=== PATIENT | male | born 1940 | race Caucasian/White ===

== ENCOUNTER 2018-04-03 14:51 | Inpatient (IN) | payer OTHER ==
[2018-04-03 17:22] VITALS: BMI 24.7
--- NOTE | 2018-04-03 17:40 | History and Physical Report ---
History of Present Illnes - History of Present Illness Reason for Visit: gait disturbance following CVA History of Present Illness: Patient is a 78-year-old white male who has a history of Parkinson's disease, hypertension, orthostatic hypotension, dry eye syndrome, and GERDs. Approximately three days ago patient developed a severe headache and was noted to have some left facial drooping. Patient was subsequently seen at the [facility] in clinic. Patient was found to have a right basiler ganglia subacute infarct. No specific intervention was done. Patient was subsequently transferred to this institution for further rehab services. Prior to his stroke patient was living at home with his . Patient does need some assistance in his daily living cares because of his Parkinson's disease. - Past Medical History Cardiac: AFIB (converted), HTN, Other (orthostatic hypotension) [employer]IAN: Seizure, Other (Parkinson's Disease) Gastrointestinal: Constipation (last BM 4 days ago) Psych: Other (Sun downers) - Past Surgical History Past Surgical History: Appendectomy, Cataract Removal (bilat), Other (Left knee endon repair, carpal tunnel release, bk surgery for spinal stenosis) - Past Family History Mother Family History: CAD, (72yo), Other (Santo's son) Father Family History: CAD, (65yo) Sister 1 Family History: Cancer (breast), Sister 2 Family History: CVA, (83yo), Other (Parkinson's ) - Past Social History Smoke: No Occupation: [employer], local truck driver Alcohol: None Drugs: None Lives: With Family Domestic Violence: Negative - Health Maintenance Health Maintenance: denies: Influenza Vaccine Influenza Vaccine: No Pneumonia Vaccine: No Resuscitation Status: Resusciation Status Resuscitation Status Full Code - Unable to Obtain History Unable to Obtain: Yes ( ) Review of Systems - Review of Systems Constitutional: negative: Fever, Chills Eyes: negative: pain, vision change, conjunctivae inflammation, eyelid inflammation, redness ENT: negative: Ear Pain, Ear Discharge, Nose Discharge, Nose Congestion, Mouth Pain, Mouth Swelling, Throat Pain, Throat Swelling Respiratory: negative: Cough, Dry, Shortness of Breath, Hemoptysis, SOB with Excertion, Pleuritic Pain, Sputum, Wheezing Cardiovascular: Light Headedness. negative: Chest Pain, Palpitations, Orthopnea, Paroxysmal Noc. Dyspnea, Edema Gastrointestinal: negative: Nausea, Vomiting, Abdominal Pain, Diarrhea, Constipation, Melena, Hematochezia Genitourinary: negative: Dysuria, Frequency, Incontinence, Hematuria, Retention Musculoskeletal: negative: Neck Pain, Back Pain Skin: negative: Rash, Lesions, Jaundice Neurological: Weakness, Change in Speech, Confusion. negative: Numbness, Seizures, Deferred - Medications/Allergies Allergies/Adverse Reactions: Allergies Allergy/AdvReac Type Severity Reaction Status Date / Time tramadol AdvReac Hallucinati Verified 04/03/18 18:45 ons Home Medications: Home Medications Aspirin EC [Ecotrin] 81 mg PO DAILY 04/03/18 Carbidopa/Levodopa [Carbidopa-Levo 25-100 mg Odt] 2 tab PO TID 04/03/18 Carbidopa/Levodopa [Carbidopa-Levodopa 10-100 Tab] 1 tab PO TID 04/03/18 Carboxymethylcellulose Sodium [Lubricant Plus] 1 each OP QID 04/03/18 Cholecalciferol [Vitamin D-3] 1 tab PO DAILY 04/03/18 Diclofenac Sodium [Pennsaid] 2 gm TP DAILY PRN 04/03/18 Diltiazem HCl [Diltiazem 24Hr Cd] 240 mg PO D 04/03/18 Entacapone 200 mg PO TID 04/03/18 Fludrocortisone Acetate 0.05 mg PO DAILY 04/03/18 Hypromellose/Pf [Retaine Hpmc 0.3% Eye Drops] 10 ml OP HS 04/03/18 Levetiracetam 500 mg PO BID 04/03/18 Lisinopril [Prinivil] 2.5 mg PO 2000 04/03/18 Midodrine HCl 2.5 mg PO 0700,1200 04/03/18 Omeprazole 20 mg PO 0700 04/03/18 Polyethylene Glycol 3350 [Miralax] 17 gm PO 1100 04/03/18 Potassium Chloride 10 meq PO DAILY 04/03/18 Exam - Exam Vital Signs: Vital Signs (72 hours) 04/03/18 15:42 Temperature 97.2 F L Pulse Rate [ 67 Left] Respiratory 16 Rate Blood Pressure 113/52 [Left Arm] O2 Sat by Pulse 98 Oximetry General: Alert, Oriented to Person, Oriented to Place, Oriented to Time, Cooperative HEENT: Atraumatic, PERRLA, EOMI, Mouth Mucous membr. moist/[place], Nose Mucous membr. moist/[place] Neck: Normal Range of Motion Lungs: Clear to auscultation, Normal air movement, Speaks full Sentences Cardiovascular: Regular rate, Normal S1, Normal S2, No murmurs Abdomen: Normal bowel sounds, Soft, No tenderness, No hepatospenomegaly, No masses Integumentary: Normal, [place], Warm, Dry Extremities: No clubbing, No cyanosis, No edema, Normal pulses, No tenderness/swelling Neurological: Normal gait, Normal speech, Strength Equal Bilat, Normal tone, Sensation intact, Cranial nerves 3-12 NL, Reflexes 2+, Other (resting tremors) Psych/Mental Status: Mental status NL, Mood NL, Appropriate Affect, Intact Judgment Assessment/Plan - Assessment/Plan (1) Basal ganglia stroke Status: Acute Current Visit: Yes Assessment: Patient does have some weakness. Will start physical and occupational therapy. Patient is currently on aspirin therapy. (2) Essential hypertension Status: Acute Current Visit: Yes Assessment: Will continue with home medications. (3) Orthostatic hypotension Status: Acute Current Visit: Yes Assessment: Patient will have support stockings place. Will continue with home medications. (4) Chronic GERD Status: Acute Current Visit: Yes Assessment: Will continue with the proton pump inhibitor. (5) Parkinson disease Status: Acute Current Visit: Yes Assessment: Will continue his home medications. VTE Assessment - RISK FACTOR SCORE VTE RISK FACTOR SCORES: AGE OVER 60 YEARS, ANTICIPATED BED CONFINEMENT OR IMMOBILIZATION > 24 HOURS - RISK VTE MODERATE RISK: SCORE OF 2 (RISK PROXIMAL DVT 2-4%) PROPHYAXIS NEEDED
[2018-04-03] MEDS: ENOXAPARIN SODIUM 30 MG/0.3 ML DISP.SYRIN SQ SCH (18:29)
[2018-04-03] MEDS ORDERED: INFLUENZA VACCINE/PF 60 MCG/0.5 ML DISP.SYRIN IM SCH (19:00)
[2018-04-03] MEDS: MELATONIN 3 MG TABLET PO SCH (20:44)
[2018-04-03] MEDS: LISINOPRIL 2.5 MG TABLET PO SCH (20:44)
[2018-04-03] MEDS: levETIRAcetam 500 MG TABLET PO SCH (20:44)
[2018-04-04] MEDS: PANTOPRAZOLE SODIUM 40 MG TABLET PO SCH (06:06)
[2018-04-04] MEDS: MIDODRINE HCL 5 MG TABLET PO SCH ×2 (06:06→11:35)
[2018-04-04] MEDS ORDERED: CHOLECALCIFEROL (VIT D3) 1,000 UNIT TABLET PO SCH (09:00)
[2018-04-04] MEDS: POTASSIUM CHLORIDE 10 MEQ TABLET.ER PO SCH (09:06)
[2018-04-04] MEDS: ASPIRIN EC 81 MG TABLET.DR PO SCH (09:06)
[2018-04-04] MEDS: levETIRAcetam 500 MG TABLET PO SCH ×2 (09:07→20:16)
[2018-04-04] MEDS: DILTIAZEM HCL 120 MG CAP.ER.24H PO SCH (09:07)
[2018-04-04] MEDS: Non-Formulary 1 EACH PO SCH ×5 (09:07→18:46)
[2018-04-04] MEDS: FLUDROCORTISONE ACETATE 0.1 MG TABLET PO SCH (09:19)
[2018-04-04] MEDS: ACETAMINOPHEN 325 MG TABLET PO PRN (10:53)
[2018-04-04] MEDS: POLYETHYLENE GLYCOL 3350 17 GM POWD.PACK PO SCH (11:26)
[2018-04-04] MEDS: ENOXAPARIN SODIUM 30 MG/0.3 ML DISP.SYRIN SQ SCH (18:46)
[2018-04-04] MEDS: LISINOPRIL 2.5 MG TABLET PO SCH (20:17)
[2018-04-04] MEDS: MELATONIN 3 MG TABLET PO SCH (20:17)
[2018-04-05] MEDS: MIDODRINE HCL 5 MG TABLET PO SCH ×2 (06:02→11:10)
[2018-04-05] MEDS: PANTOPRAZOLE SODIUM 40 MG TABLET PO SCH (06:03)
[2018-04-05] MEDS: DILTIAZEM HCL 120 MG CAP.ER.24H PO SCH (08:54)
[2018-04-05] MEDS: ASPIRIN EC 81 MG TABLET.DR PO SCH (08:54)
[2018-04-05] MEDS: FLUDROCORTISONE ACETATE 0.1 MG TABLET PO SCH (08:55)
[2018-04-05] MEDS: POTASSIUM CHLORIDE 10 MEQ TABLET.ER PO SCH (08:56)
[2018-04-05] MEDS: Non-Formulary 1 EACH PO SCH ×6 (08:56→17:41)
[2018-04-05] MEDS: CHOLECALCIFEROL (VIT D3) 1,000 UNIT TABLET PO SCH (08:58)
[2018-04-05] MEDS: levETIRAcetam 500 MG TABLET PO SCH ×2 (09:00→20:03)
[2018-04-05] MEDS: POLYETHYLENE GLYCOL 3350 17 GM POWD.PACK PO SCH (11:08)
[2018-04-05] MEDS: ENOXAPARIN SODIUM 30 MG/0.3 ML DISP.SYRIN SQ SCH (17:40)
[2018-04-05] MEDS: MELATONIN 3 MG TABLET PO SCH (20:03)
[2018-04-05] MEDS: LISINOPRIL 2.5 MG TABLET PO SCH (20:03)
[2018-04-06] MEDS: PANTOPRAZOLE SODIUM 40 MG TABLET PO SCH (06:04)
[2018-04-06] MEDS: MIDODRINE HCL 5 MG TABLET PO SCH ×2 (06:04→12:47)
[2018-04-06] MEDS: ASPIRIN EC 81 MG TABLET.DR PO SCH (08:44)
[2018-04-06] MEDS: CHOLECALCIFEROL (VIT D3) 1,000 UNIT TABLET PO SCH (08:45)
[2018-04-06] MEDS: DILTIAZEM HCL 120 MG CAP.ER.24H PO SCH (08:45)
[2018-04-06] MEDS: FLUDROCORTISONE ACETATE 0.1 MG TABLET PO SCH (08:45)
[2018-04-06] MEDS: levETIRAcetam 500 MG TABLET PO SCH ×2 (08:45→20:02)
[2018-04-06] MEDS: Non-Formulary 1 EACH PO SCH ×6 (08:45→17:22)
[2018-04-06] MEDS: POTASSIUM CHLORIDE 10 MEQ TABLET.ER PO SCH (08:46)
[2018-04-06] MEDS ORDERED: BISACODYL 5 MG TABLET.DR PO SCH (09:00)
[2018-04-06] MEDS: POLYETHYLENE GLYCOL 3350 17 GM POWD.PACK PO SCH (11:34)
[2018-04-06] MEDS: ENOXAPARIN SODIUM 30 MG/0.3 ML DISP.SYRIN SQ SCH (18:16)
[2018-04-06] MEDS: ACETAMINOPHEN 325 MG TABLET PO PRN (18:30)
[2018-04-06] MEDS: LISINOPRIL 2.5 MG TABLET PO SCH (20:01)
[2018-04-06] MEDS: MELATONIN 3 MG TABLET PO SCH (20:02)
[2018-04-07] MEDS: MIDODRINE HCL 5 MG TABLET PO SCH ×2 (06:16→12:54)
[2018-04-07] MEDS: PANTOPRAZOLE SODIUM 40 MG TABLET PO SCH (06:16)
[2018-04-07 06:35] LABS: eGFR (Non-African) > 60
[2018-04-07] MEDS: levETIRAcetam 500 MG TABLET PO SCH ×2 (08:51→20:04)
[2018-04-07] MEDS: ASPIRIN EC 81 MG TABLET.DR PO SCH (08:52)
[2018-04-07] MEDS: DILTIAZEM HCL 120 MG CAP.ER.24H PO SCH (08:52)
[2018-04-07] MEDS: FLUDROCORTISONE ACETATE 0.1 MG TABLET PO SCH (08:53)
[2018-04-07] MEDS: POTASSIUM CHLORIDE 10 MEQ TABLET.ER PO SCH (08:53)
[2018-04-07] MEDS: CHOLECALCIFEROL (VIT D3) 1,000 UNIT TABLET PO SCH (08:54)
[2018-04-07] MEDS: Non-Formulary 1 EACH PO SCH ×6 (08:54→18:06)
[2018-04-07 09:02] LABS: EOS % 5.2 % (0.0-6.8); LYMPH ABS # 2.15 thou/uL (0.60-4.00); MCH. 30.9 pg (28.0-34.0); MCV 92.1 fL (80.0-100.0); MONOCYTE % 8.8 % (0.0-11.0); MONOCYTE ABS # 0.44 thou/uL (0.00-0.90); PLATELET COUNT 252 thou/uL (130-400)
[2018-04-07] MEDS: POLYETHYLENE GLYCOL 3350 17 GM POWD.PACK PO SCH (11:05)
[2018-04-07] MEDS: ACETAMINOPHEN 325 MG TABLET PO PRN (15:14)
[2018-04-07] MEDS: ENOXAPARIN SODIUM 30 MG/0.3 ML DISP.SYRIN SQ SCH (18:06)
[2018-04-07] MEDS: LISINOPRIL 2.5 MG TABLET PO SCH (19:48)
[2018-04-07] MEDS: MELATONIN 3 MG TABLET PO SCH (20:04)
[2018-04-08] MEDS: PANTOPRAZOLE SODIUM 40 MG TABLET PO SCH (06:03)
[2018-04-08] MEDS: MIDODRINE HCL 5 MG TABLET PO SCH ×2 (06:03→12:41)
[2018-04-08] MEDS: CHOLECALCIFEROL (VIT D3) 1,000 UNIT TABLET PO SCH (08:56)
[2018-04-08] MEDS: POTASSIUM CHLORIDE 10 MEQ TABLET.ER PO SCH (08:57)
[2018-04-08] MEDS: ASPIRIN EC 81 MG TABLET.DR PO SCH (08:57)
[2018-04-08] MEDS: levETIRAcetam 500 MG TABLET PO SCH ×2 (08:57→20:21)
[2018-04-08] MEDS: FLUDROCORTISONE ACETATE 0.1 MG TABLET PO SCH (08:57)
[2018-04-08] MEDS: Non-Formulary 1 EACH PO SCH ×7 (08:58→17:57)
[2018-04-08] MEDS: POLYETHYLENE GLYCOL 3350 17 GM POWD.PACK PO SCH (11:10)
[2018-04-08] MEDS: ENOXAPARIN SODIUM 30 MG/0.3 ML DISP.SYRIN SQ SCH (17:57)
[2018-04-08] MEDS: LISINOPRIL 2.5 MG TABLET PO SCH (20:15)
[2018-04-08] MEDS: MELATONIN 3 MG TABLET PO SCH (20:17)
[2018-04-08] MEDS: Non-Formulary 1 EACH PO PRN (20:18)
[2018-04-08] MEDS: ACETAMINOPHEN 325 MG TABLET PO PRN (20:20)
[2018-04-08] MEDS ORDERED: MELATONIN 3 MG TABLET PO PRN (20:29)
[2018-04-08] MEDS ORDERED: MELATONIN 3 MG TABLET PO ONE (20:35)
[2018-04-09] MEDS: PANTOPRAZOLE SODIUM 40 MG TABLET PO SCH (06:05)
[2018-04-09] MEDS: MIDODRINE HCL 5 MG TABLET PO SCH ×2 (06:05→11:49)
[2018-04-09] MEDS: POTASSIUM CHLORIDE 10 MEQ TABLET.ER PO SCH (09:18)
[2018-04-09] MEDS: levETIRAcetam 500 MG TABLET PO SCH ×2 (09:18→20:07)
[2018-04-09] MEDS: ASPIRIN EC 81 MG TABLET.DR PO SCH (09:18)
[2018-04-09] MEDS: FLUDROCORTISONE ACETATE 0.1 MG TABLET PO SCH (09:18)
[2018-04-09] MEDS: ACETAMINOPHEN 325 MG TABLET PO PRN (09:18)
[2018-04-09] MEDS: Non-Formulary 1 EACH PO SCH ×7 (09:18→18:14)
[2018-04-09] MEDS: CHOLECALCIFEROL (VIT D3) 1,000 UNIT TABLET PO SCH (09:20)
[2018-04-09] MEDS: POLYETHYLENE GLYCOL 3350 17 GM POWD.PACK PO SCH (11:49)
[2018-04-09] MEDS: ENOXAPARIN SODIUM 30 MG/0.3 ML DISP.SYRIN SQ SCH (18:12)
[2018-04-09] MEDS ORDERED: MAGNESIUM CITRATE 296 ML BOTTLE PO ONE (20:00)
[2018-04-09] MEDS: LISINOPRIL 2.5 MG TABLET PO SCH (20:06)
[2018-04-09] MEDS: MELATONIN 3 MG TABLET PO SCH (20:07)
[2018-04-10] MEDS: MIDODRINE HCL 5 MG TABLET PO SCH ×2 (06:03→12:49)
[2018-04-10] MEDS: PANTOPRAZOLE SODIUM 40 MG TABLET PO SCH (06:03)
[2018-04-10] MEDS: POTASSIUM CHLORIDE 10 MEQ TABLET.ER PO SCH (08:41)
[2018-04-10] MEDS: levETIRAcetam 500 MG TABLET PO SCH ×2 (08:41→19:53)
[2018-04-10] MEDS: ASPIRIN EC 81 MG TABLET.DR PO SCH (08:41)
[2018-04-10] MEDS: FLUDROCORTISONE ACETATE 0.1 MG TABLET PO SCH (08:42)
[2018-04-10] MEDS: Non-Formulary 1 EACH PO SCH ×7 (08:42→18:01)
[2018-04-10] MEDS: CHOLECALCIFEROL (VIT D3) 1,000 UNIT TABLET PO SCH (08:45)
[2018-04-10] MEDS: POLYETHYLENE GLYCOL 3350 17 GM POWD.PACK PO SCH (11:40)
[2018-04-10] MEDS: ENOXAPARIN SODIUM 30 MG/0.3 ML DISP.SYRIN SQ SCH (18:00)
[2018-04-10] MEDS: LISINOPRIL 2.5 MG TABLET PO SCH (19:53)
[2018-04-10] MEDS: MELATONIN 3 MG TABLET PO SCH (19:54)
[2018-04-11] MEDS: PANTOPRAZOLE SODIUM 40 MG TABLET PO SCH (06:07)
[2018-04-11] MEDS: MIDODRINE HCL 5 MG TABLET PO SCH ×2 (06:07→13:16)
[2018-04-11] MEDS: Non-Formulary 1 EACH PO SCH ×7 (08:53→17:51)
[2018-04-11] MEDS: POTASSIUM CHLORIDE 10 MEQ TABLET.ER PO SCH (08:53)
[2018-04-11] MEDS: levETIRAcetam 500 MG TABLET PO SCH ×2 (08:54→21:28)
[2018-04-11] MEDS: ASPIRIN EC 81 MG TABLET.DR PO SCH (08:54)
[2018-04-11] MEDS: ACETAMINOPHEN 325 MG TABLET PO PRN (08:56)
[2018-04-11] MEDS: FLUDROCORTISONE ACETATE 0.1 MG TABLET PO SCH (08:57)
[2018-04-11] MEDS: CHOLECALCIFEROL (VIT D3) 1,000 UNIT TABLET PO SCH (08:58)
[2018-04-11] MEDS: POLYETHYLENE GLYCOL 3350 17 GM POWD.PACK PO SCH (13:18)
[2018-04-11] MEDS: ENOXAPARIN SODIUM 30 MG/0.3 ML DISP.SYRIN SQ SCH (17:51)
[2018-04-11] MEDS ORDERED: BISACODYL 5 MG TABLET.DR PO PRN (19:27)
[2018-04-11] MEDS: MELATONIN 3 MG TABLET PO SCH (21:28)
[2018-04-11] MEDS: DOCUSATE SODIUM 100 MG CAPSULE PO SCH (21:29)
[2018-04-11] MEDS: LISINOPRIL 2.5 MG TABLET PO SCH (21:29)
[2018-04-12] MEDS: PANTOPRAZOLE SODIUM 40 MG TABLET PO SCH (06:22)
[2018-04-12] MEDS: MIDODRINE HCL 5 MG TABLET PO SCH ×2 (06:22→11:45)
--- NOTE | 2018-04-12 07:52 | Discharge Summary ---
Discharge Summary - Discharge Sumary History of Present Illness: Patient is a 78-year-old white male who has a history of Parkinson's disease, hypertension, orthostatic hypotension, dry eye syndrome, and GERDs. Approximately three days ago patient developed a severe headache and was noted to have some left facial drooping. Patient was subsequently seen at the [facility] in clinic. Patient was found to have a right basiler ganglia subacute infarct. No specific intervention was done. Patient was subsequently transferred to this institution for further rehab services. Prior to his stroke patient was living at home with his . Patient does need some assistance in his daily living cares because of his Parkinson's disease. Condition at Discharge: Stable Home Medications: Ambulatory Orders Medication Instructions Recorded Aspirin EC [Ecotrin] 81 mg PO DAILY 04/03/18 Carboxymethylcellulose Sodium 1 each OP QID 04/03/18 [Lubricant Plus] Cholecalciferol [Vitamin D-3] 1 tab PO DAILY 04/03/18 Diltiazem HCl [Diltiazem 24Hr Cd] 240 mg PO D 04/03/18 Entacapone 200 mg PO TID 04/03/18 Fludrocortisone Acetate 0.05 mg PO DAILY 04/03/18 Levetiracetam 500 mg PO BID 04/03/18 Midodrine HCl 2.5 mg PO 0700,1200 04/03/18 Omeprazole 20 mg PO 0700 04/03/18 Polyethylene Glycol 3350 [Miralax] 17 gm PO 1100 04/03/18 Potassium Chloride 10 meq PO DAILY 04/03/18 Acetaminophen [Tylenol] 650 mg PO Q6 PRN tablet 04/17/18 Carbidopa/Levodopa/Entacapone 1 each PO TID #90 tablet 04/17/18 [Rhsgjsatl-Qeyqkwqu-Ndan 50 mg] Diclofenac Sodium [Voltaren] 1 appl TP Q6 PRN #1 tube 04/17/18 Hypromellose [Genteal] 1 drop OP QID PRN #25 ml 04/17/18 Lisinopril 2.5 mg PO D #30 tablet 04/17/18 Consultations this Visit: None Procedures this Visit: None Allergies/Adverse Reactions: Allergies Allergy/AdvReac Type Severity Reaction Status Date / Time tramadol AdvReac Hallucinati Verified 04/03/18 18:45 ons Discharge Summary: Patient did well during his skilled stay. Patient participated well with physical and occupational therapy and did make some improvement in his ability to transfer and ambulate. Patient does live need some assistance at the time of discharge. It felt that he would benefit from further home helps services but his felt that she could provide this care without any further help. Patient Parkinson's disease remains stable. Patient did have some variation in his stiffness and tremors from day-to-day. Patient did not have any further neurological deterioration or reoccurrence of stroke symptoms. Patient hypertension remain stable. - Final Diagnosis (1) Basal ganglia stroke Problems: stable with no reoccurance (2) Essential hypertension Problems: stable on home meds (3) Orthostatic hypotension Problems: stable, patient is not very symptomatic at this time
[2018-04-12] MEDS: Non-Formulary 1 EACH PO SCH ×7 (08:41→18:03)
[2018-04-12] MEDS: CHOLECALCIFEROL (VIT D3) 1,000 UNIT TABLET PO SCH (08:41)
[2018-04-12] MEDS: POTASSIUM CHLORIDE 10 MEQ TABLET.ER PO SCH (08:42)
[2018-04-12] MEDS: levETIRAcetam 500 MG TABLET PO SCH ×2 (08:42→20:41)
[2018-04-12] MEDS: FLUDROCORTISONE ACETATE 0.1 MG TABLET PO SCH (08:43)
[2018-04-12] MEDS: ASPIRIN EC 81 MG TABLET.DR PO SCH (08:44)
[2018-04-12] MEDS: POLYETHYLENE GLYCOL 3350 17 GM POWD.PACK PO SCH (11:46)
[2018-04-12] MEDS: ACETAMINOPHEN 325 MG TABLET PO PRN (12:49)
[2018-04-12] MEDS: ENOXAPARIN SODIUM 30 MG/0.3 ML DISP.SYRIN SQ SCH (18:04)
[2018-04-12] MEDS: LISINOPRIL 2.5 MG TABLET PO SCH (20:41)
[2018-04-12] MEDS: MELATONIN 3 MG TABLET PO SCH (20:41)
[2018-04-12] MEDS: Non-Formulary 1 EACH PO PRN (20:41)
[2018-04-12] MEDS: DOCUSATE SODIUM 100 MG CAPSULE PO SCH (20:42)
[2018-04-13] MEDS: MIDODRINE HCL 5 MG TABLET PO SCH ×2 (06:40→12:32)
[2018-04-13] MEDS: PANTOPRAZOLE SODIUM 40 MG TABLET PO SCH (06:40)
[2018-04-13] MEDS: levETIRAcetam 500 MG TABLET PO SCH ×2 (08:12→19:19)
[2018-04-13] MEDS: ASPIRIN EC 81 MG TABLET.DR PO SCH (08:12)
[2018-04-13] MEDS: POTASSIUM CHLORIDE 10 MEQ TABLET.ER PO SCH (08:12)
[2018-04-13] MEDS: FLUDROCORTISONE ACETATE 0.1 MG TABLET PO SCH (08:12)
[2018-04-13] MEDS: Non-Formulary 1 EACH PO SCH ×7 (08:13→18:15)
[2018-04-13] MEDS: CHOLECALCIFEROL (VIT D3) 1,000 UNIT TABLET PO SCH (08:14)
[2018-04-13] MEDS: POLYETHYLENE GLYCOL 3350 17 GM POWD.PACK PO SCH (12:39)
[2018-04-13] MEDS: ENOXAPARIN SODIUM 30 MG/0.3 ML DISP.SYRIN SQ SCH (18:17)
[2018-04-13] MEDS: LISINOPRIL 2.5 MG TABLET PO SCH (19:17)
[2018-04-13] MEDS: DOCUSATE SODIUM 100 MG CAPSULE PO SCH (19:17)
[2018-04-13] MEDS: MELATONIN 3 MG TABLET PO SCH (19:18)
[2018-04-14] MEDS: PANTOPRAZOLE SODIUM 40 MG TABLET PO SCH (06:05)
[2018-04-14] MEDS: MIDODRINE HCL 5 MG TABLET PO SCH ×2 (06:05→12:41)
[2018-04-14] MEDS: POTASSIUM CHLORIDE 10 MEQ TABLET.ER PO SCH (09:13)
[2018-04-14] MEDS: levETIRAcetam 500 MG TABLET PO SCH ×2 (09:13→20:09)
[2018-04-14] MEDS: Non-Formulary 1 EACH PO SCH ×7 (09:14→18:08)
[2018-04-14] MEDS: ASPIRIN EC 81 MG TABLET.DR PO SCH (09:14)
[2018-04-14] MEDS: CHOLECALCIFEROL (VIT D3) 1,000 UNIT TABLET PO SCH (09:15)
[2018-04-14] MEDS: FLUDROCORTISONE ACETATE 0.1 MG TABLET PO SCH (09:16)
[2018-04-14] MEDS: POLYETHYLENE GLYCOL 3350 17 GM POWD.PACK PO SCH (12:41)
[2018-04-14] MEDS: ENOXAPARIN SODIUM 30 MG/0.3 ML DISP.SYRIN SQ SCH (18:12)
[2018-04-14] MEDS: DOCUSATE SODIUM 100 MG CAPSULE PO SCH (20:09)
[2018-04-14] MEDS: LISINOPRIL 2.5 MG TABLET PO SCH (20:09)
[2018-04-14] MEDS: MELATONIN 3 MG TABLET PO SCH (20:09)
[2018-04-15] MEDS: PANTOPRAZOLE SODIUM 40 MG TABLET PO SCH (06:03)
[2018-04-15] MEDS: MIDODRINE HCL 5 MG TABLET PO SCH ×2 (06:03→12:39)
[2018-04-15] MEDS: levETIRAcetam 500 MG TABLET PO SCH ×2 (08:38→20:51)
[2018-04-15] MEDS: ASPIRIN EC 81 MG TABLET.DR PO SCH (08:38)
[2018-04-15] MEDS: FLUDROCORTISONE ACETATE 0.1 MG TABLET PO SCH (08:39)
[2018-04-15] MEDS: POTASSIUM CHLORIDE 10 MEQ TABLET.ER PO SCH (08:39)
[2018-04-15] MEDS: Non-Formulary 1 EACH PO SCH ×7 (08:43→17:41)
[2018-04-15] MEDS: CHOLECALCIFEROL (VIT D3) 1,000 UNIT TABLET PO SCH (08:43)
[2018-04-15] MEDS: POLYETHYLENE GLYCOL 3350 17 GM POWD.PACK PO SCH (12:16)
[2018-04-15] MEDS: ENOXAPARIN SODIUM 30 MG/0.3 ML DISP.SYRIN SQ SCH (18:40)
[2018-04-15] MEDS: MELATONIN 3 MG TABLET PO SCH (20:49)
[2018-04-15] MEDS: DOCUSATE SODIUM 100 MG CAPSULE PO SCH (20:50)
[2018-04-15] MEDS: LISINOPRIL 2.5 MG TABLET PO SCH (20:50)
[2018-04-15] MEDS: ACETAMINOPHEN 325 MG TABLET PO PRN (20:51)
[2018-04-16] MEDS: MIDODRINE HCL 5 MG TABLET PO SCH ×2 (06:04→12:01)
[2018-04-16] MEDS: PANTOPRAZOLE SODIUM 40 MG TABLET PO SCH (06:05)
[2018-04-16] MEDS: ASPIRIN EC 81 MG TABLET.DR PO SCH (08:48)
[2018-04-16] MEDS: POTASSIUM CHLORIDE 10 MEQ TABLET.ER PO SCH (08:48)
[2018-04-16] MEDS: CHOLECALCIFEROL (VIT D3) 1,000 UNIT TABLET PO SCH (08:48)
[2018-04-16] MEDS: levETIRAcetam 500 MG TABLET PO SCH ×2 (08:48→20:40)
[2018-04-16] MEDS: Non-Formulary 1 EACH PO SCH ×7 (08:48→18:15)
[2018-04-16] MEDS: FLUDROCORTISONE ACETATE 0.1 MG TABLET PO SCH (08:49)
[2018-04-16] MEDS: POLYETHYLENE GLYCOL 3350 17 GM POWD.PACK PO SCH (11:27)
[2018-04-16] MEDS: ENOXAPARIN SODIUM 30 MG/0.3 ML DISP.SYRIN SQ SCH (18:15)
[2018-04-16] MEDS: LISINOPRIL 2.5 MG TABLET PO SCH (20:39)
[2018-04-16] MEDS: DOCUSATE SODIUM 100 MG CAPSULE PO SCH (20:40)
[2018-04-16] MEDS: MELATONIN 3 MG TABLET PO SCH (20:41)
[2018-04-16] MEDS: ACETAMINOPHEN 325 MG TABLET PO PRN (20:42)
[2018-04-17] MEDS: MIDODRINE HCL 5 MG TABLET PO SCH (06:20)
[2018-04-17] MEDS: PANTOPRAZOLE SODIUM 40 MG TABLET PO SCH (06:20)
[2018-04-17] MEDS: levETIRAcetam 500 MG TABLET PO SCH (09:07)
[2018-04-17] MEDS: CHOLECALCIFEROL (VIT D3) 1,000 UNIT TABLET PO SCH (09:07)
[2018-04-17] MEDS: ASPIRIN EC 81 MG TABLET.DR PO SCH (09:08)
[2018-04-17] MEDS: Non-Formulary 1 EACH PO SCH ×3 (09:09→09:11)
[2018-04-17] MEDS: POTASSIUM CHLORIDE 10 MEQ TABLET.ER PO SCH (09:11)
[2018-04-17] MEDS: FLUDROCORTISONE ACETATE 0.1 MG TABLET PO SCH (09:12)
[2018-04-17 09:21] VITALS: BP 168/94
--- NOTE | 2018-04-29 21:23 | Inpatient Progress Note ---
Subjective - Required Recertification Statement I anticipate X number of days because-include discharge plan: 7 days - Review of Systems Events since last encounter: Patient seemed to be doing well at this time. Patient states it is not a reoccurrence of a stroke symptoms. Patient does seem to be making improvement with his ability to transfer and ambulate. Patient other chronic medical problems remain stable. HEENT: Denies: Head Aches, Visual Changes Pulmonary: Denies: Dyspnea, Cough Cardiovascular: Denies: Chest Pain, Palpitations, Orthopnea Objective - Exam Vitals and I&O: Vital Signs Temp 97.1 F L 04/17/18 09:14 Pulse 94 H 04/17/18 09:14 Resp 18 04/17/18 09:14 BP 168/94 04/17/18 09:14 Pulse Ox 99 04/17/18 09:14 General: Alert, Oriented to Person, Oriented to Place, Cooperative, No acute distress Neck: Supple, No JVD Lungs: Clear to auscultation, Normal air movement, Speaks full Sentences. No: Wheezes, Rales, Rhonchi Cardiovascular: Regular rate, Normal S1, Normal S2, No murmurs Abdomen: Normal bowel sounds, Soft, No tenderness Extremities: No clubbing, No cyanosis, No edema Skin: Normal, [place], Warm, Dry, Pale Neurological: Normal gait, Normal speech, Strength Equal Bilat, Normal tone, Sensation intact, Cranial nerves 3-12 NL - Results Results: Laboratory Results WBC Comment 5.03 thou/uL (4.00-12.00) 04/07/18 05:21 RBC 4.24 mil/uL (3.80-5.80) 04/07/18 05:21 Hemoglobin (Send Out) 13.1 g/dL (12.0-18.0) 04/07/18 05:21 Hct (Send Out) 39.1 % (37.0-53.0) 04/07/18 05:21 MCV (Send Out) 92.1 fL (80.0-100.0) 04/07/18 05:21 MCH 30.9 pg (28.0-34.0) 04/07/18 05:21 MCHC (Send Out) 33.5 g/dL (30.0-36.0) 04/07/18 05:21 RDW Coeff of Katerin 12.1 % (11.3-14.7) 04/07/18 05:21 Plt Count 252 thou/uL (130-400) 04/07/18 05:21 Absolute Lymphs (auto) 2.15 thou/uL (0.60-4.00) 04/07/18 05:21 Absolute Monos (auto) 0.44 thou/uL (0.00-0.90) 04/07/18 05:21 Absolute Basos (auto) 0.05 thou/uL (0.00-0.50) 04/07/18 05:21 Neutrophils % 42.4 % (39.0-79.0) 04/07/18 05:21 Absolute Neutrophils 2.13 thou/uL (1.50-7.70) 04/07/18 05:21 Lymphocytes 42.7 % (16.0-50.0) 04/07/18 05:21 Monocytes 8.8 % (0.0-11.0) 04/07/18 05:21 Absolute Eosinophils 0.26 thou/uL (0.00-0.60) 04/07/18 05:21 Basophilia % 1.0 % (0.0-1.5) 04/07/18 05:21 Eosinophil Count 5.2 % (0.0-6.8) 04/07/18 05:21 Sodium 134 mmol/L (136-145) L 04/07/18 05:21 Potassium 4.6 mmol/L (3.5-5.1) 04/07/18 05:21 Chloride 102 mmol/L (98-107) 04/07/18 05:21 Carbon Dioxide 25 mmol/L (22-30) 04/07/18 05:21 BUN 17 mg/dL (9-20) 04/07/18 05:21 Creatinine 0.90 mg/dL (0.66-1.25) 04/07/18 05:21 Estimated Creat Clear 75 04/07/18 05:21 Est GFR ( Amer) > 60 (60-) 04/07/18 05:21 Est GFR (Non-Af Amer) > 60 (60-) 04/07/18 05:21 Glucose 86 mg/dL (74-106) 04/07/18 05:21 Calcium 8.7 mg/dL (8.4-10.2) 04/07/18 05:21 Total Bilirubin 0.4 mg/dL (0.2-1.3) 04/07/18 05:21 AST 14 U/L (15-46) L 04/07/18 05:21 ALT 21 U/L (13-69) 04/07/18 05:21 Alkaline Phosphatase 107 U/L (38-126) 04/07/18 05:21 Total Protein 6.3 g/dL (6.3-8.2) 04/07/18 05:21 Albumin 3.5 g/dL (3.5-5.0) 04/07/18 05:21 Assessment/Plan - Assessment/Plan (1) Basal ganglia stroke Status: Acute Assessment: stable (2) Essential hypertension Status: Chronic Assessment: Stable on home medications. (3) Orthostatic hypotension Status: Chronic (4) Chronic GERD Status: Chronic Assessment: Stable on home medications. (5) Parkinson disease Status: Chronic Assessment: Stable on home medications.
== END 2018-04-17 10:46 | disposition home or self-care (01) | DRG 57 ==
LOC: SOUTH 14:51
PROVIDERS: ADMIT Family Medicine; ATTEND Family Medicine
DX: I69.398 Other sequelae of cerebral infarction (principal); R26.89 Other abnormalities of gait and mobility; I10 Essential (primary) hypertension; G20 Parkinson's disease; I95.1 Orthostatic hypotension; K21.9 Gastro-esophageal reflux disease without esophagitis
CPT/HCPCS: 80053; 85025; 90656; J1650